=== PATIENT | male | born 1975 | race Caucasian/White ===

== ENCOUNTER 2019-11-08 09:39 | Emergency (ER) | payer BC ==
[2019-11-08 09:54] VITALS: BP 131/98; TEMP 98.6; O2SAT 97
[2019-11-08] MEDS ORDERED: IBUPROFEN 200 MG TAB PO ONE (10:10)
[2019-11-08] MEDS ORDERED: METHOCARBAMOL 750 MG TAB PO ONE (10:11)
--- NOTE | 2019-11-08 10:25 | ED.PDOC ---
History of Present Illness - General Chief Complaint: Back Pain or Injury Stated Complaint: back pain Time Seen by Provider: 11/08/19 10:10 Source: patient Exam Limitations: no limitations Additional Information: The patient is a 44 year old who presents with back pain. 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 He says that three days ago he went to sit down and his "back went out." He complains of thoracic back pain, worse with movement and deep inspiration. He notes that his pain is worse when he turns his head side to side. He has not taken anything for his pain. It does not radiate. No weakness, numbness or tingling. No changes to bowel or bladder function. No other complaints at this time. - History of Present Illness Timing/Duration: days - three Quality/Severity: moderate Back Pain Location: T-spine Method of Injury/Prior Injury: unknown Improving Factors: immobilization Worsening Factors: movement Associated Symptoms: muscle spasms Allergies/Adverse Reactions: Allergies NO KNOWN ALLERGY Allergy (Verified 11/08/19 09:50) Home Medications: Ambulatory Orders Acetaminophen W/ Codeine [Tylenol W/ CODEINE #3] 1 ea PO Q4H PRN #20 11/08/19 Methocarbamol [Robaxin] 750 mg PO Q4H PRN #20 tab 11/08/19 Review of Systems - Review of Systems Constitutional: States: no symptoms reported EENTM: States: no symptoms reported Respiratory: States: no symptoms reported Cardiology: States: no symptoms reported Gastrointestinal/Abdominal: States: no symptoms reported Genitourinary: States: no symptoms reported Musculoskeletal: States: back pain, muscle pain, muscle stiffness, neck pain Skin: States: no symptoms reported Neurological: States: no symptoms reported Endocrine: States: no symptoms reported Hematologic/Lymphatic: States: no symptoms reported All other Systems: Reviewed and Negative, No Change from Baseline Past Medical History (General) - Patient Medical History Hx Seizures: No Hx of COPD: No Hx Hypertension: No Hx Diabetes: No Hx Cancer: No Hx Hepatitis C: No - Vaccination History Hx Tetanus, Diphtheria Vaccination: No Hx Influenza Vaccination: No Hx Pneumococcal Vaccination: No Immunizations Up to Date: No - Social History Hx Tobacco Use: No Hx Alcohol Use: No Hx Substance Use: No Hx Substance Use Treatment: No Hx Depression: No Family Medical History - Family History Mother Family History: Unknown Physical Exam - Physical Exam General Appearance: Comfortable, No apparent distress Neck Exam: non-tender, full range of motion Cardiovascular/Respiratory: regular rate, rhythm Back Exam: decreased range of motion, muscle spasm, vertebral tenderness - thoracic spine Extremity Exam: normal range of motion 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 There is no acute bony injury, no clinical history suggestive of spinal cord compression or other emergent pathology. Will continue outpatient management with analgesia and muscle relaxants. He will follow up with his primary care provider. - EKG/XRAY/CT XRAY: Thoracic Spine Xray Comments: No acute disease Departure - Departure Clinical Impression: Upper back pain Time of Disposition: 10:35 Disposition: Discharge to Home or Self Care Condition: Fair Departure Forms: ED Discharge - Pt. Copy, Patient Portal Self Enrollment Instructions: DI for Low Back Pain, DI for Back Spasm Diet: resume usual diet Activity: increase activity as tolerated Prescriptions: Acetaminophen W/ Codeine [Tylenol W/ CODEINE #3] 1 ea PO Q4H PRN #20 PRN Reason: Pain Methocarbamol [Robaxin] 750 mg PO Q4H PRN #20 tab PRN Reason: Pain Home Medications: Ambulatory Orders Acetaminophen W/ Codeine [Tylenol W/ CODEINE #3] 1 ea PO Q4H PRN #20 11/08/19 Methocarbamol [Robaxin] 750 mg PO Q4H PRN #20 tab 11/08/19
--- NOTE | 2019-11-08 10:33 | RAD ---
EXAM DESCRIPTION: Thoracic Spine Lateral CLINICAL HISTORY: 44 years Male, back pain COMPARISON: None. FINDINGS: Three views of the thoracic spine demonstrate curvature convex to the left with no significant kyphosis. Vertebral and disc height is maintained. No paraspinous mass or destructive process is seen. No compression deformity noted. IMPRESSION: Essentially normal dorsal spine with minimal curvature convex to the left in the upper thoracic spine, estimated at 5 degrees. Electronically signed by: Parker Fung MD 11/08/2019 10:31 AM CDT
== END 2019-11-08 10:42 | disposition home or self-care (01) ==
LOC: ER 09:39
DX: M54.6 Pain in thoracic spine (principal)